=== PATIENT | male | born 1975 | race Hispanic/Latino ===

== ENCOUNTER 2017-11-12 11:56 | Emergency (ER) | payer SELFPAY ==
[2017-11-12] MEDS ORDERED: HYDROcodone/Acetaminophen 5/325 mg Tablet ONE (12:17)
[2017-11-12] MEDS ORDERED: Indomethacin 25 mg Capsule ONE (12:18)
== END 2017-11-12 12:28 | disposition home or self-care (01) ==
LOC: NAV ERS 11:56
DX: M10.9 Gout, unspecified (principal); I10 Essential (primary) hypertension; Z79.899 Other long term (current) drug therapy
CPT/HCPCS: 99283

== ENCOUNTER 2018-05-28 19:42 | Emergency (ER) | payer SELFPAY ==
[2018-05-28] MEDS ORDERED: Naproxen 500 MG TAB ONE (20:08)
[2018-05-28] MEDS ORDERED: methylPREDNISolone Acetate 40 mg/ml Vial ONE (20:08)
[2018-05-28] MEDS ORDERED: cloNIDine 0.1 MG TAB ONE (20:20)
[2018-05-28] MEDS ORDERED: Lisinopril 10 MG TAB ONE (20:20)
== END 2018-05-28 21:05 | disposition home or self-care (01) ==
LOC: NAV ERS 19:42
DX: L23.7 Allergic contact dermatitis due to plants, except food (principal); I10 Essential (primary) hypertension; Z79.899 Other long term (current) drug therapy
CPT/HCPCS: 96372; J1030

== ENCOUNTER 2019-03-30 14:07 | Emergency (ER) | payer SELFPAY ==
--- NOTE | 2019-03-30 15:10 | RAD ---
LEFT KNEE FOUR VIEWS: History: Left knee pain. Fall. FINDINGS: Mild degenerative changes are present. No fracture or dislocation is identified. A joint effusion is seen. POS: [facility]
== END 2019-03-30 15:23 | disposition home or self-care (01) ==
LOC: NAV ERS 14:07
DX: S83.422A Sprain of lateral collateral ligament of left knee, initial encounter (principal); I10 Essential (primary) hypertension; Z79.899 Other long term (current) drug therapy; X50.9XXA Other and unspecified overexertion or strenuous movements or postures, initial encounter

== ENCOUNTER 2021-08-23 16:21 | Outpatient (CLI) | payer OTHER | END 2021-08-23 16:22 | disposition home or self-care (01) | LOC: NAV RAD 16:21 | PROVIDERS: ATTEND Family Medicine | DX: M25.561 Pain in right knee (principal) ==

== ENCOUNTER → 2024-10-27 | Emergency (ER) | payer SELFPAY | LOC: NAV ERS 17:42 | DX: S05.92XA Unspecified injury of left eye and orbit, initial encounter (principal); I10 Essential (primary) hypertension; W45.8XXA Other foreign body or object entering through skin, initial encounter | CPT/HCPCS: 99283 ==